=== PATIENT | female | born 1980 | race African-American/Black ===

== ENCOUNTER 2019-02-02 15:32 | Emergency (ER) | payer MEDICAID ==
[~2019-02-02] VITALS: Ht 172.7 cm; Wt 91.0 kg
[2019-02-02 15:37] VITALS: BP 112/60
== END 2019-02-02 15:58 | disposition left against medical advice (07) ==
LOC: ER 15:48
DX: F23 Brief psychotic disorder (principal); Z53.21 Procedure and treatment not carried out due to patient leaving prior to being seen by health care provider

== ENCOUNTER 2019-02-02 17:02 | Emergency (ER) | payer MEDICAID ==
[~2019-02-02] VITALS: Ht 152.4 cm; Wt 82.0 kg
[2019-02-02 17:46] VITALS: BP 131/73
== END 2019-02-02 18:30 | disposition left against medical advice (07) ==
LOC: ER 17:02
DX: I51.9 Heart disease, unspecified (principal); Z53.21 Procedure and treatment not carried out due to patient leaving prior to being seen by health care provider
CPT/HCPCS: 99281

== ENCOUNTER 2020-09-10 09:39 | Emergency (ER) | payer MEDICAID ==
[~2020-09-10] VITALS: Ht 172.7 cm; Wt 97.0 kg
[2020-09-10 10:44] LABS: BASOPHILS % 0.5 % (0.0-2.0); EOSINOPHILS % 3.6 % (0.0-5.0); HEMATOCRIT. 35.2 % (36.0-48.0); HEMOGLOBIN. 11.7 g/dL (12.0-16.0); LYMPHOCYTES % 14.8 % (20.0-50.0); MEAN PLATELET VOLUME 8.8 fl (7.4-10.4); MONOCYTES % 6.9 % (2.0-8.0); NEUTROPHILS % 74.2 % (40.0-76.0); PLATELET 220 x1000/uL (130-400); RED BLOOD CELL COUNT 4.35 mill/uL (4.2-5.4); RED CELL DISTRIBUTION WIDTH 15.4 % (11.6-14.6)
[2020-09-10 10:51] LABS: CHLORIDE 108 mEq/L (98-107); PROTHROMBIN TIME 10.8 sec (9.6-11.0)
[2020-09-10 10:53] LABS: ETHANOL BLOOD < 10 mg/dL
[2020-09-10 11:08] LABS: HCG SCREEN NEGATIVE
[2020-09-10 12:11] LABS: CLARITY URINE CLOUDY (CLEAR); COLOR URINE YELLOW (YELLOW); KETONES URINE NEGATIVE (NEGATIVE); LEUKOCYTE ESTERASE URINE TRACE (NEGATIVE); NITRITE URINE NEGATIVE (NEGATIVE); OCCULT BLOOD URINE 3+ (NEGATIVE); PH URINE 7.5 (4.5-8.0); PROTEIN URINE NEGATIVE (NEGATIVE); SPECIFIC GRAVITY URINE 1.014 (1.005-1.030)
[2020-09-10 12:39] LABS: *AMPHETAMINES SCREEN URINE NEGATIVE (NEGATIVE); *BARBITURATES SCREEN URINE NEGATIVE (NEGATIVE); *BENZODIAZEPINES SCREEN URINE NEGATIVE (NEGATIVE); METHADONE URINE SCREEN NEGATIVE (NEGATIVE); OPIATES URINE SCREEN NEGATIVE (NEGATIVE)
[2020-09-10 12:40] LABS: CANNABINOID URINE SCREEN NEGATIVE (NEGATIVE)
[2020-09-10 12:44] LABS: *COCAINE SCREEN URINE PRESUMTIVE POSITIVE (NEGATIVE); PHENCYCLIDINE URINE SCREEN PRESUMTIVE POSITIVE (NEGATIVE)
[2020-09-10] MEDS ORDERED: CEPHALEXIN 250MG CAPSULE PO SCH (13:00)
[2020-09-10] MEDS ORDERED: ACET650T37 MT (13:26)
[2020-09-10] MEDS ORDERED: CEPH500C2 MT (13:26)
[2020-09-10] MEDS ORDERED: CEFTRIAXONE SODIUM 500 MG/VIAL IM ONE (13:45)
[2020-09-10 14:00] VITALS: BP 135/92
== END 2020-09-10 15:49 | disposition home or self-care (01) ==
LOC: ER 10:02
DX: R10.9 Unspecified abdominal pain (principal); N39.0 Urinary tract infection, site not specified; F60.0 Paranoid personality disorder; F22 Delusional disorders; J45.909 Unspecified asthma, uncomplicated; F32.9 Major depressive disorder, single episode, unspecified; I50.9 Heart failure, unspecified
CPT/HCPCS: 36415; 80053; 80305; 80307; 80320; 80329; 81003; 83690; 84703; 85025; 85610; 93005; 96372; 99284; J0696; Z7610; G0480

== ENCOUNTER 2020-09-17 04:35 | Emergency (ER) | payer MEDICAID ==
[~2020-09-17] VITALS: Ht 172.7 cm; Wt 68.0 kg
[~2020-09-17 04:35] MED LIST: ACET650T37 MT; CEPH500C2 MT
[2020-09-17 04:43] VITALS: BP 140/80
[2020-09-17 05:25] LABS: CLARITY URINE CLOUDY (CLEAR); COLOR URINE YELLOW (YELLOW); KETONES URINE 1+ (NEGATIVE); LEUKOCYTE ESTERASE URINE 3+ (NEGATIVE); NITRITE URINE NEGATIVE (NEGATIVE); OCCULT BLOOD URINE TRACE (NEGATIVE); PH URINE 5.5 (4.5-8.0); PROTEIN URINE 1+ (NEGATIVE); SPECIFIC GRAVITY URINE 1.035 (1.005-1.030)
[2020-09-17] MEDS ORDERED: PENICILLIN G BENZATHINE 1,200,000 UNITS/2ML SYR IM ONE (05:30)
[2020-09-17] MEDS ORDERED: LIDOCAINE HCL 1% 20ML VIAL (Pyxis) INJ INFIL ONE (05:45)
[2020-09-17] MEDS ORDERED: IBUPROFEN 600MG TABLET PO ONE (05:45)
[2020-09-17] MEDS ORDERED: AZITHROMYCIN 500 MG TABLET PO ONE (05:45)
[2020-09-17] MEDS ORDERED: CEFTRIAXONE SODIUM 500 MG/VIAL IM ONE (05:45)
[2020-09-17] MEDS ORDERED: NITR-87 MT (06:04)
[2020-09-17] MEDS ORDERED: METR70GE17 VG (06:07)
[2020-09-17] MEDS ORDERED: CLOT45CR7 VG (06:08)
[2020-09-19 04:12] LABS: NEISSERIA GONORRHOEAE NAA Negative (Negative)
== END 2020-09-17 06:47 | disposition home or self-care (01) ==
LOC: ER 04:35
DX: J02.0 Streptococcal pharyngitis (principal); Z11.3 Encounter for screening for infections with a predominantly sexual mode of transmission; Z20.2 Contact with and (suspected) exposure to infections with a predominantly sexual mode of transmission; Z87.440 Personal history of urinary (tract) infections; Z91.013 Allergy to seafood
CPT/HCPCS: 81003; 81025; 87086; 87210; 87430; 87491; 87591; 96372; 99284; J0561; J0696; J3490; Z7610

== ENCOUNTER 2021-06-05 11:57 | Emergency (ER) | payer MEDICAID ==
[~2021-06-05] VITALS: Ht 167.6 cm; Wt 91.0 kg
[~2021-06-05 11:57] MED LIST changes: -CEPH500C2 MT; +CLOT45CR62 VG; +METR70GE17 VG; +NITR-87 MT
[2021-06-05 12:40] LABS: BASOPHILS % 1.1 % (0.0-2.0); EOSINOPHILS % 4.8 % (0.0-5.0); HEMATOCRIT. 38.1 % (36.0-48.0); HEMOGLOBIN. 12.5 g/dL (12.0-16.0); LYMPHOCYTES % 35.6 % (20.0-50.0); MEAN CORPUSCULAR HEMOGLOBIN 28.1 pg (28.0-32.0); MEAN CORPUSCULAR VOLUME 85.7 fL (81.0-99.0); MEAN PLATELET VOLUME 8.6 fl (7.4-10.4); MONOCYTES % 9.6 % (2.0-8.0); NEUTROPHILS % 48.9 % (40.0-76.0); PLATELET 292 x1000/uL (130-400); RED BLOOD CELL COUNT 4.44 mill/uL (4.2-5.4); RED CELL DISTRIBUTION WIDTH 13.8 % (11.6-14.6)
[2021-06-05 12:52] LABS: CHLORIDE 110 mEq/L (98-107)
[2021-06-05 12:56] LABS: ETHANOL BLOOD < 10 mg/dL
[2021-06-05 12:58] LABS: HCG SCREEN NEGATIVE
[2021-06-05 16:36] LABS: CLARITY URINE CLOUDY (CLEAR); COLOR URINE YELLOW (YELLOW); KETONES URINE 1+ (NEGATIVE); LEUKOCYTE ESTERASE URINE 1+ (NEGATIVE); NITRITE URINE NEGATIVE (NEGATIVE); OCCULT BLOOD URINE 1+ (NEGATIVE); PH URINE 5.5 (4.5-8.0); PROTEIN URINE NEGATIVE (NEGATIVE); SPECIFIC GRAVITY URINE 1.026 (1.005-1.030)
[2021-06-05 16:54] LABS: *BARBITURATES SCREEN URINE NEGATIVE (NEGATIVE); *BENZODIAZEPINES SCREEN URINE NEGATIVE (NEGATIVE); METHADONE URINE SCREEN NEGATIVE (NEGATIVE)
[2021-06-05 16:55] LABS: OPIATES URINE SCREEN NEGATIVE (NEGATIVE)
[2021-06-05 17:06] LABS: *AMPHETAMINES SCREEN URINE PRESUMTIVE POSITIVE (NEGATIVE); *COCAINE SCREEN URINE PRESUMTIVE POSITIVE (NEGATIVE); CANNABINOID URINE SCREEN PRESUMTIVE POSITIVE (NEGATIVE); PHENCYCLIDINE URINE SCREEN PRESUMTIVE POSITIVE (NEGATIVE)
[2021-06-06 02:00] VITALS: BP 141/81
== END 2021-06-06 03:23 | disposition home or self-care (01) ==
LOC: ER 11:57
DX: G92.9 Unspecified toxic encephalopathy (principal); R94.31 Abnormal electrocardiogram [ECG] [EKG]; E11.9 Type 2 diabetes mellitus without complications; E78.5 Hyperlipidemia, unspecified; I10 Essential (primary) hypertension; Z87.440 Personal history of urinary (tract) infections
CPT/HCPCS: 36415; 71045; 80053; 80305; 80320; 81003; 82140; 84443; 84484; 84703; 85025; 93005; 99285; G0480